=== PATIENT | female | born 1965 | race Caucasian/White ===

== ENCOUNTER → 2018-01-17 | Day surgery (SDC) | payer OTHER ==
[~2018-01-17] MED LIST: HYDROXYZINE50 MG PO; PREDNICOT20 MG PO; SYNTHROID0.15 MG PO
--- NOTE | 2018-01-17 16:28 | MAMMOGRAPHY REPORT ---
PROCEDURE: US GUIDANCE FOR BREAST PREOPERATIVE WIRE FREE LOCALIZATION, LEFT MM POST LOCALIZATION 2 VIEWS, LEFT BREAST CLINICAL INFORMATION: 52-year-old female known to have left breast papilloma on ultrasound-guided biopsy done on 12/17/2007. Preoperative wire free localization is requested. COMPARISON: Prior studies done on 12/16/2017, and 11/29/2017. TECHNIQUE AND FINDINGS: The details of the procedure, as well as the risks, benefits, and alternatives to the procedure were explained to the patient in detail and all of her questions were answered, after which, written informed consent was obtained. Prior to the procedure, sonography revealed the indexed solid biopsy-proved papilloma in the subareolar region of the left breast laterally measuring 0.6 x 0.8 x 0.5 cm containing a tissue marker from prior ultrasound-guided biopsy. A timeout was performed, the lesion intended for wire free localization was targeted and the skin of the left breast was then prepped and draped in the usual sterile fashion. Using sonographic guidance, sterile technique and 10 mL of 2% lidocaine mixed with 1 mL of sodium bicarbonate without epinephrine for local anesthesia, a 5 cm Mayda Loan Clerk reflector and delivery system was placed within the biopsy-proved papilloma at subareolar part of the left breast laterally and the reflector device was deployed within the biopsy proved papilloma without complications. The distance to the reflector device from the skin surface measured 0.4 cm. The distance to the chest wall from the reflector device measured 1.6 cm. The overlying skin was also marked with skin marker. The patient tolerated the procedure well. 2 view mammograms further confirmed accurate placement of the reflector device within the intended mass. Previously placed tissue marker was also identified adjacent to the newly placed reflector device. The worksheet was appropriately labeled and scanned into the system. IMPRESSION: 1. Successful sonographic guided wire free localization of the left breast biopsy-proved papilloma in the subareolar region laterally. 2. Mammographic confirmation of accurate placement of the reflector device along with appropriate marking for presurgical roadmap with the worksheet. 3. The overlying skin surface was also marked with a skin marker.
== END ==
LOC: CBW.IIU 01-14 08:00 → CBW.US 01-14 08:30 → CBW.IIU 09:00
DX: D24.2 Benign neoplasm of left breast (principal)
CPT/HCPCS: 76942; 77065-LT; A4648; J2001

== ENCOUNTER → 2018-01-28 | Day surgery (SDC) | payer OTHER ==
[~2018-01-28] VITALS: Ht 172.7 cm; Wt 116.6 kg
--- NOTE | 2018-01-28 12:47 | Operative Report ---
Operative/Inv Procedure Report Surgery Date: 01/28/18 Name of Procedure: Left nipple exploration and breast biopsy Pre-Operative Diagnosis: Left breast bloody nipple discharge, papilloma Post-Operative Diagnosis: Same Estimated Blood Loss: less than 50ml Surgeon/Client Account Specialist: Liya Fisher MD Anesthesia: local monitored anesthesi Specimens: Left nipple and left intraductal lesion Operative/Procedure Note Note: Patient is bloody nipple discharge and was found to have an intraductal lesion which was biopsied and showed papilloma. She is brought to the operating room for excision. She brought to the operating placed under anesthesia. 2 g of Ancef was given. The left breast was prepped and draped in a sterile fashion using ChloraPrep. Local anesthesia of Marcaine and lidocaine mix was given in a periareolar fashion. The duct that was discharging bloody discharge was located at 3:00 and was cannulated using a lacrimal duct probe. A periareolar incision was then made and the areola was elevated. A savvy information technology data analyst clip had been placed preoperatively and a probe was used to identify the location of the clip. The area was dissected to encompass the area of increased uptake and a biopsy was performed using electrocautery. The clip was visible in the biopsy specimen. Specimen was marked for orientation and intraoperative x-ray confirmed the presence of both clips in the specimen. Hemostasis was adequate. The lacrimal duct probe was also visible once the duct was, cross. A small fleshy lesion was seen emerging from the duct and this was sent separately and labeled intraductal lesion. The breast biopsy was marked breast biopsy and sent for permanent section. Hemostasis was adequate using electrocautery and deep tissue was approximated using interrupted Vicryl sutures. Skin was closed using a running Biosyn subcuticular stitch. Steri-Strips and sterile dressings were applied and patient transferred to the recovery room in satisfactory condition having tolerated the procedure well.
--- NOTE | 2018-01-28 14:35 | MAMMOGRAPHY REPORT ---
EXAMINATION: MM SPECIMEN FROM THE BREAST, LEFT CLINICAL INDICATION: 52-year-old female with biopsy-proven left breast papilloma on ultrasound-guided biopsy done on 12/16/2017. Preoperative wire free localization was performed on 01/17/2018. The patient was scheduled for surgery earlier today. Postsurgical excision specimen radiograph is requested. COMPARISON: 01/17/2018 and 12/16/2017. TECHNIQUE: Spot radiographs of the specimen. FINDINGS: The radiograph of the excised surgical specimen shows that the previously placed tissue marker placed at the time of ultrasound-guided biopsy, and the wire free localization marker are within the specimen. IMPRESSION: Satisfactory excision of the targeted lesion. These findings were communicated to the surgeon in the OR at the time of specimen radiography.
== END ==
LOC: STS 01:09
DX: D24.2 Benign neoplasm of left breast (principal); N64.59 Other signs and symptoms in breast; G47.33 Obstructive sleep apnea (adult) (pediatric); Z87.891 Personal history of nicotine dependence; E03.9 Hypothyroidism, unspecified; M17.9 Osteoarthritis of knee, unspecified
CPT/HCPCS: J0131; J0690; J1100; J1885; J2250; J2405; J3490